=== PATIENT | female | born 1955 | race Two or more races ===

== ENCOUNTER 2017-04-17 04:55 | Emergency (ER) | payer MEDICAID ==
[~2017-04-17] VITALS: Ht 154.9 cm; Wt 59.0 kg
[2017-04-17 05:57] LABS: Basophils # (auto) 0.1 uL; Basophils % (auto) 0.5 % (0.0-2.0); Eosinophils # (auto) 0.3 uL; Eosinophils % (auto) 2.8 % (0.0-7.0); Hematocrit 33.9 % (36.0-46.0); Hemoglobin 11.3 g/dL (12.2-16.2); Lymphocytes # (auto) 2.3 uL; Lymphocytes % (auto) 22.9 % (10.0-50.0); Mean Corpuscular Hemoglobin 31.3 pg (28.0-32.0); Mean Corpuscular Hgb Conc. 33.3 g/dL (32.0-36.0); Mean Corpuscular Volume 93.9 fL (80.0-100.0); Mean Platelet Volume 8.7 fL (6.9-10.8); Monocytes # (auto) 0.9 uL; Monocytes % (auto) 8.9 % (0.0-12.0); Neutrophils # (auto) 6.5 uL; Neutrophils % (auto) 64.9 % (37.0-80.0); Platelet Count (auto) 219 10^3/uL (140-450); Red Cell Distribution Width 15.1 % (11.8-14.3)
[2017-04-17] MEDS ORDERED: ONDANSETRON HCL 4 MG/2 ML VIAL IV ONE (06:00)
[2017-04-17] MEDS ORDERED: MORPHINE SULF INJ 2 MG/ML SYRINGE 1ML IV ONE (06:00)
[2017-04-17 06:04] LABS: Urine Bilirubin Negative (Negative); Urine Blood 1+ /uL (Negative); Urine Color Yellow (Yellow); Urine Glucose 2+ mg/dL (Normal); Urine Ketone Negative (Negative); Urine Nitrite Negative (Negative); Urine RBC 3 /hpf (0 - 4); Urine Squamous Epithelial Cell FEW /hpf (<5); Urine Urobilinogen Normal (Negative)
[2017-04-17 06:10] LABS: INR 0.94 (0.9-1.15); Partial Thromboplastin Time 30.1 sec (22.64-33.71); Prothrombin Time 10.2 sec (9.37-12.3)
[2017-04-17 06:20] LABS: Albumin 3.1 g/dL (3.4-5.0); Amylase 119 U/L (25-115); Anion Gap 12 (5-15); Aspartate Aminotransferase 33 U/L (15-37); BUN/Creatinine Ratio 8.5; Blood Urea Nitrogen 53 mg/dL (7-18); Calcium 8.7 mg/dL (8.5-10.1); Carbon Dioxide 21 mmol/L (21-32); Chloride 107 mmol/L (98-107); GFR African American 9 mL/min; GFR Non-African American 7 mL/min; Glucose 144 mg/dL (74-106); Magnesium 2.6 mg/dL (1.6-2.6); Potassium 5.4 mmol/L (3.5-5.1); Sodium 140 mmol/L (136-145)
[2017-04-17 06:25] LABS: Alkaline Phosphatase 168 U/L (45-117); Bilirubin, Total 0.3 mg/dL (0.2-1.0); Total Protein 7.7 g/dL (6.4-8.2)
[2017-04-17] MEDS ORDERED: METOPROLOL TARTRATE 25 MG TAB PO ONE (07:00)
[2017-04-17] MEDS ORDERED: cloNIDine HCL 0.1 MG TAB PO ONE (07:00)
[2017-04-17 07:28] VITALS: BP 194/90
[2017-04-17] MEDS ORDERED: LABETALOL HCL 5 MG/ML 4ML SYRINGE IV ONE (07:30)
== END 2017-04-17 10:10 | disposition home or self-care (01) ==
LOC: ER 04:57
DX: I12.0 Hypertensive chronic kidney disease with stage 5 chronic kidney disease or end stage renal disease (principal); E11.22 Type 2 diabetes mellitus with diabetic chronic kidney disease; N18.6 End stage renal disease; Z88.2 Allergy status to sulfonamides; Z88.8 Allergy status to other drugs, medicaments and biological substances
CPT/HCPCS: 36415; 71010; 74176; 80053; 81001; 82150; 83690; 83735; 84484; 85025; 85610; 85730; 93005; 96374; 96375; 99285; J2270; J2405; J3490

== ENCOUNTER 2017-04-26 13:46 | Observation (INO) | payer MEDICAID ==
[~2017-04-26] VITALS: Ht 162.6 cm; Wt 54.4 kg
[2017-04-26 14:20] LABS: Basophils # (auto) 0 uL; Basophils % (auto) 0.4 % (0.0-2.0); Eosinophils # (auto) 0 uL; Eosinophils % (auto) 0.4 % (0.0-7.0); Hemoglobin 11.9 g/dL (12.2-16.2); Lymphocytes # (auto) 1.2 uL; Lymphocytes % (auto) 20.3 % (10.0-50.0); Mean Corpuscular Hemoglobin 31.7 pg (28.0-32.0); Mean Corpuscular Hgb Conc. 34.1 g/dL (32.0-36.0); Mean Corpuscular Volume 92.9 fL (80.0-100.0); Mean Platelet Volume 8.4 fL (6.9-10.8); Monocytes # (auto) 0.4 uL; Monocytes % (auto) 7.6 % (0.0-12.0); Neutrophils # (auto) 4.1 uL; Neutrophils % (auto) 71.3 % (37.0-80.0); Platelet Count (auto) 185 10^3/uL (140-450); Red Cell Distribution Width 15.2 % (11.8-14.3); White Blood Cell 5.7 10^3/uL (4.4-10.8)
[2017-04-26 14:38] LABS: Albumin 3.1 g/dL (3.4-5.0); Anion Gap 12 (5-15); Calcium 8.5 mg/dL (8.5-10.1); Carbon Dioxide 24 mmol/L (21-32); Chloride 100 mmol/L (98-107); Glucose 175 mg/dL (74-106); Magnesium 2.5 mg/dL (1.6-2.6); Potassium 4.4 mmol/L (3.5-5.1); Sodium 136 mmol/L (136-145)
[2017-04-26 14:44] LABS: Alkaline Phosphatase 139 U/L (45-117); Aspartate Aminotransferase 22 U/L (15-37); Bilirubin, Total 0.3 mg/dL (0.2-1.0); Blood Urea Nitrogen 45 mg/dL (7-18); GFR African American 9 mL/min; GFR Non-African American 7 mL/min; Total Protein 7.1 g/dL (6.4-8.2)
[2017-04-26] MEDS ORDERED: ONDANSETRON HCL 4 MG/2 ML VIAL IV ONE ×2 (16:30→18:45)
[2017-04-26] MEDS ORDERED: cloNIDine HCL 0.1 MG TAB PO ONE (17:30)
[2017-04-26 18:16] LABS: INR 0.94 (0.9-1.15); Partial Thromboplastin Time 33.4 sec (22.64-33.71); Prothrombin Time 10.2 sec (9.37-12.3)
[2017-04-26] MEDS ORDERED: MORPHINE SULF INJ 2 MG/ML SYRINGE 1ML IV ONE (18:45)
[2017-04-26] MEDS ORDERED: hydrALAZINE HCL 20 MG/ML VL IV ONE (19:15)
[2017-04-26] MEDS ORDERED: SODIUM CHLORIDE 0.9% 250 ML IV ONE (20:30)
[2017-04-26 20:34] VITALS: BP 127/68
== END 2017-04-26 21:08 | disposition short-term general hospital (02) | DRG 204 ==
LOC: EDBD 13:46 → ER 13:46 → OVERFLOW 16:29 → ER 21:08
PROVIDERS: ADMIT Family Medicine; ATTEND Family Medicine
DX: R55 Syncope and collapse (principal); E11.22 Type 2 diabetes mellitus with diabetic chronic kidney disease; I12.0 Hypertensive chronic kidney disease with stage 5 chronic kidney disease or end stage renal disease; N18.6 End stage renal disease; Z99.2 Dependence on renal dialysis; B02.9 Zoster without complications
CPT/HCPCS: 36415; 70450; 71010; 80053; 82962; 83605; 83735; 84484; 85025; 85610; 85730; 87040; 93005; 96374; 96375; 96376; 99285; G0378; J0360; J2270; J2405

== ENCOUNTER 2017-05-09 23:26 | Emergency (ER) | payer MEDICAID ==
[~2017-05-09] VITALS: Ht 154.9 cm; Wt 49.9 kg
[2017-05-10 00:28] LABS: Basophils # (auto) 0 uL; Basophils % (auto) 0.5 % (0.0-2.0); Eosinophils # (auto) 0 uL; Eosinophils % (auto) 0.4 % (0.0-7.0); Hematocrit 31.1 % (36.0-46.0); Hemoglobin 10.6 g/dL (12.2-16.2); Lymphocytes # (auto) 1.2 uL; Lymphocytes % (auto) 20.8 % (10.0-50.0); Mean Corpuscular Hemoglobin 31.5 pg (28.0-32.0); Mean Corpuscular Hgb Conc. 34.1 g/dL (32.0-36.0); Mean Corpuscular Volume 92.5 fL (80.0-100.0); Mean Platelet Volume 8.3 fL (6.9-10.8); Monocytes # (auto) 0.5 uL; Monocytes % (auto) 8.4 % (0.0-12.0); Neutrophils # (auto) 3.9 uL; Neutrophils % (auto) 69.9 % (37.0-80.0); Nucleated Red Blood Cells % 0.1 %; Platelet Count (auto) 172 10^3/uL (140-450); Red Cell Distribution Width 16.5 % (11.8-14.3); White Blood Cell 5.6 10^3/uL (4.4-10.8)
[2017-05-10 00:33] LABS: Albumin 2.7 g/dL (3.4-5.0); Calcium 7.7 mg/dL (8.5-10.1); Potassium 3.9 mmol/L (3.5-5.1)
[2017-05-10 00:38] LABS: Bilirubin, Total 0.5 mg/dL (0.2-1.0); Total Protein 6.3 g/dL (6.4-8.2)
[2017-05-10 00:40] LABS: B-Type Natriuretic Peptide 297.8 pg/mL (0-100)
[2017-05-10 00:48] LABS: INR 0.94 (0.9-1.15); Partial Thromboplastin Time 30.2 sec (22.64-33.71); Prothrombin Time 10.2 sec (9.37-12.3)
[2017-05-10 00:49] LABS: Temperature: 23.1 C (20.0-25.0)
[2017-05-10] MEDS ORDERED: MORPHINE SULF INJ 2 MG/ML SYRINGE 1ML IV ONE (01:00)
[2017-05-10] MEDS ORDERED: ONDANSETRON HCL 4 MG/2 ML VIAL IV ONE (01:00)
[2017-05-10 02:45] VITALS: BP 197/89
== END 2017-05-10 02:51 | disposition home or self-care (01) ==
LOC: ER 23:28
DX: I12.0 Hypertensive chronic kidney disease with stage 5 chronic kidney disease or end stage renal disease (principal); E11.22 Type 2 diabetes mellitus with diabetic chronic kidney disease; N18.6 End stage renal disease; Z99.2 Dependence on renal dialysis; Z88.2 Allergy status to sulfonamides; Z88.1 Allergy status to other antibiotic agents; Z88.8 Allergy status to other drugs, medicaments and biological substances
CPT/HCPCS: 36415; 70450; 71010; 80053; 83880; 84484; 85025; 85610; 85730; 96374; 96375; 99285; J2270; J2405

== ENCOUNTER 2017-09-15 17:35 | Inpatient (IN) | payer MEDICAID ==
[~2017-09-15] VITALS: Ht 154.9 cm; Wt 63.3 kg
[2017-09-15] MEDS ORDERED: ACETAMINOPHEN 500 MG TAB PO ONE ×2 (17:51→18:00)
[2017-09-15 18:25] LABS: Basophils # (auto) 0 uL; Basophils % (auto) 0.5 % (0.0-2.0); Eosinophils # (auto) 0 uL; Eosinophils % (auto) 0.3 % (0.0-7.0); Hematocrit 31.4 % (36.0-46.0); Hemoglobin 10.4 g/dL (12.2-16.2); Lymphocytes # (auto) 0.6 uL; Lymphocytes % (auto) 6.7 % (10.0-50.0); Mean Corpuscular Hemoglobin 31.1 pg (28.0-32.0); Mean Corpuscular Hgb Conc. 33.1 g/dL (32.0-36.0); Monocytes # (auto) 0.6 uL; Monocytes % (auto) 6.3 % (0.0-12.0); Neutrophils # (auto) 7.9 uL; Neutrophils % (auto) 86.2 % (37.0-80.0); Nucleated Red Blood Cells % 0.1 %; Platelet Count (auto) 229 10^3/uL (140-450); Red Blood Cells 3.34 10^6/uL (4.0-5.20); Red Cell Distribution Width 16.5 % (11.8-14.3); White Blood Cell 9.1 10^3/uL (4.4-10.8)
[2017-09-15] MEDS ORDERED: LEVOFLOXACIN 500MG 100 ML IV ONE (18:30)
[2017-09-15] MEDS ORDERED: IPRATROPIUM BROM 0.5 MG/2.5ML INH SOL HHN ONE (18:30)
[2017-09-15] MEDS ORDERED: methylPREDNISolone SOD SUCC 125 MG/2 ML VL IV ONE (18:30)
[2017-09-15] MEDS ORDERED: ALBUTEROL SULF 2.5 MG/0.5ML(0.5%) NEB SOLN HHN ONE (18:30)
[2017-09-15 18:37] LABS: INR 0.95 (0.9-1.15); Partial Thromboplastin Time 27.5 sec (22.64-33.71); Prothrombin Time 10.4 sec (9.37-12.3)
[2017-09-15 18:46] LABS: Albumin 3.2 g/dL (3.4-5.0); BUN/Creatinine Ratio 5.8; Bilirubin, Total 0.9 mg/dL (0.2-1.0); Calcium 8.4 mg/dL (8.5-10.1); Magnesium 2.4 mg/dL (1.6-2.6); Potassium 3.9 mmol/L (3.5-5.1); Total Protein 7.6 g/dL (6.4-8.2)
[2017-09-15] MEDS ORDERED: MORPHINE SULFATE 4 MG/ML SYR/VIAL IV PRN ×2 (19:30)
[2017-09-15] MEDS ORDERED: NITROGLYCERIN 0.4 MG SL TAB SL PRN (19:30)
[2017-09-15] MEDS ORDERED: HYDROcodone-ACET 5/325MG TAB PO PRN (19:30)
[2017-09-15] MEDS ORDERED: LORazepam 0.5 MG TAB PO PRN (19:30)
[2017-09-15] MEDS ORDERED: TEMAZEPAM 15 MG CAP PO PRN (19:30)
[2017-09-15] MEDS ORDERED: ALBUTEROL SULF 2.5 MG/0.5ML(0.5%) NEB SOLN NEB PRN (19:30)
[2017-09-15] MEDS ORDERED: ACETAMINOPHEN 500 MG TAB PO PRN (19:30)
[2017-09-15] MEDS ORDERED: LACTULOSE 20Gm/30ML SOLN PO PRN (19:30)
[2017-09-15] MEDS ORDERED: PIPERACILLIN-TAZOB 2.25GM 50 ML IV ONE (19:30)
[2017-09-15] MEDS ORDERED: DEXTROSE (50%) 50ML SYRG IV PRN (19:30)
[2017-09-15] MEDS ORDERED: VANCOMYCIN PER PHARMACY 0 MG IV SCH (19:30)
[2017-09-15 19:45] VITALS: BP 190/82
[2017-09-15] MEDS ORDERED: CARVEDILOL 12.5 MG TAB PO ONE (19:45)
[2017-09-15] MEDS ORDERED: VANCOMYCIN 1GM/250ML 250 ML IV ONE (20:00)
[2017-09-15] MEDS ORDERED: AZITHROMYCIN 500MG/ 250ML 250 ML IV ONE (21:15)
[2017-09-15] MEDS: ACCU-CHEK COMFORT CURVE STRIP VI SCH (21:41)
[2017-09-15] MEDS: InsuLIN REG 1unit/0.01ml Soln (100units/ml) SC SCH (21:41)
[2017-09-15] MEDS: SODIUM CHLOR 0.9% PF (SALINE LOCK) 10ML VIAL IV SCH (21:49)
[2017-09-15] MEDS ORDERED: SODIUM CHLOR 0.9% PF (SALINE LOCK) 10ML VIAL IV SCH (22:00)
[2017-09-15] MEDS ORDERED: CARVEDILOL 3.125 MG TAB PO SCH (22:00)
[2017-09-15] MEDS: OSELTAMIVIR 30 MG CAP PO SCH (22:29)
[2017-09-15] MEDS: PROMETHAZINE HCL 25 MG/ML 1ML IV PRN (23:22)
[2017-09-16] MEDS: IPRATROPIUM BROM 0.5 MG/2.5ML INH SOL NEB SCH ×4 (00:31→19:30)
[2017-09-16] MEDS: ALBUTEROL SULF 2.5 MG/0.5ML(0.5%) NEB SOLN NEB SCH ×4 (00:31→19:30)
[2017-09-16] MEDS ORDERED: LORazepam 2MG/ML-1ML VIAL IV ONE (02:45)
[2017-09-16] MEDS: SODIUM CHLOR 0.9% PF (SALINE LOCK) 10ML VIAL IV SCH ×3 (05:36→21:24)
[2017-09-16] MEDS: ACCU-CHEK COMFORT CURVE STRIP VI SCH ×4 (06:34→21:53)
[2017-09-16] MEDS: InsuLIN REG 1unit/0.01ml Soln (100units/ml) SC SCH ×4 (06:34→21:53)
[2017-09-16 07:11] LABS: Basophils # (auto) 0 uL; Eosinophils # (auto) 0 uL; Hematocrit 26.1 % (36.0-46.0); Hemoglobin 8.8 g/dL (12.2-16.2); Lymphocytes # (auto) 0.6 uL; Mean Corpuscular Hemoglobin 32.3 pg (28.0-32.0); Mean Corpuscular Hgb Conc. 33.9 g/dL (32.0-36.0); Mean Corpuscular Volume 95.1 fL (80.0-100.0); Monocytes # (auto) 0.1 uL; Monocytes % (auto) 2.4 % (0.0-12.0); Neutrophils # (auto) 5.2 uL; Neutrophils % (auto) 87.6 % (37.0-80.0); Nucleated Red Blood Cells % 0.1 %; Platelet Count (auto) 154 10^3/uL (140-450); Red Blood Cells 2.74 10^6/uL (4.0-5.20); Red Cell Distribution Width 15.7 % (11.8-14.3)
[2017-09-16 07:56] LABS: Albumin 2.8 g/dL (3.4-5.0); BUN/Creatinine Ratio 8.5; Bilirubin, Total 0.6 mg/dL (0.2-1.0); Calcium 7.6 mg/dL (8.5-10.1); Potassium 3.7 mmol/L (3.5-5.1); Total Protein 6.5 g/dL (6.4-8.2)
[2017-09-16] MEDS: OSELTAMIVIR 30 MG CAP PO SCH (10:00)
[2017-09-16] MEDS: FUROSEMIDE 40 MG/4 ML VIAL IV SCH (10:59)
[2017-09-16] MEDS: ASPirin 81 mg TAB PO SCH (10:59)
[2017-09-16] MEDS: AZITHROMYCIN 500MG/ 250ML 250 ML IV SCH (10:59)
[2017-09-16] MEDS: ENALAPRIL MALEATE 10 MG TAB PO SCH (11:00)
[2017-09-16] MEDS: PANTOPRAZOLE 40 MG TAB PO SCH (11:00)
[2017-09-16] MEDS: CARVEDILOL 12.5 MG TAB PO SCH ×2 (11:00→21:53)
[2017-09-16] MEDS: NITROGLYCERIN 0.2MG/HR TOPICAL PATCH TD SCH (11:01)
[2017-09-16] MEDS: ENOXAPARIN SOD 30 MG/0.3 ML SYRINGE SC SCH (11:03)
[2017-09-16] MEDS ORDERED: INS7030I SC ×2 (12:39)
[2017-09-16] MEDS ORDERED: HYDR25TA35 PO (12:39)
[2017-09-16] MEDS ORDERED: AMLO5TAB2 PO (12:39)
[2017-09-16] MEDS ORDERED: CALC667C5 PO (12:39)
[2017-09-16] MEDS ORDERED: METO25TA5 PO (12:39)
[2017-09-16] MEDS ORDERED: diphenhdrAMINE HCL 50 MG/1 ML VL IV ONE (14:15)
[2017-09-16 16:51] VITALS: BP 151/69
[2017-09-16] MEDS: PIPERACILLIN-TAZOB 2.25GM 50 ML IV SCH (21:24)
[2017-09-16 22:30] VITALS: BP 154/85
[2017-09-17] MEDS: ALBUTEROL SULF 2.5 MG/0.5ML(0.5%) NEB SOLN NEB SCH ×4 (00:36→18:47)
[2017-09-17] MEDS: IPRATROPIUM BROM 0.5 MG/2.5ML INH SOL NEB SCH ×4 (00:36→18:47)
[2017-09-17 05:25] VITALS: BP 148/73
[2017-09-17] MEDS: InsuLIN REG 1unit/0.01ml Soln (100units/ml) SC SCH ×4 (06:30→21:33)
[2017-09-17] MEDS: SODIUM CHLOR 0.9% PF (SALINE LOCK) 10ML VIAL IV SCH ×3 (06:30→22:08)
[2017-09-17] MEDS: ACCU-CHEK COMFORT CURVE STRIP VI SCH ×4 (06:30→22:09)
[2017-09-17 06:59] LABS: Basophils # (auto) 0 uL; Basophils % (auto) 0.2 % (0.0-2.0); Eosinophils # (auto) 0 uL; Hematocrit 24.4 % (36.0-46.0); Hemoglobin 8.3 g/dL (12.2-16.2); Lymphocytes # (auto) 1.4 uL; Lymphocytes % (auto) 12.6 % (10.0-50.0); Mean Corpuscular Hemoglobin 31.6 pg (28.0-32.0); Mean Corpuscular Hgb Conc. 33.9 g/dL (32.0-36.0); Mean Corpuscular Volume 93.5 fL (80.0-100.0); Monocytes # (auto) 0.5 uL; Monocytes % (auto) 4.7 % (0.0-12.0); Neutrophils # (auto) 9.2 uL; Neutrophils % (auto) 82.5 % (37.0-80.0); Platelet Count (auto) 167 10^3/uL (140-450); Red Blood Cells 2.61 10^6/uL (4.0-5.20); Red Cell Distribution Width 15.8 % (11.8-14.3); White Blood Cell 11.1 10^3/uL (4.4-10.8)
[2017-09-17 07:23] LABS: Albumin 2.5 g/dL (3.4-5.0); BUN/Creatinine Ratio 10.4; Bilirubin, Total 0.4 mg/dL (0.2-1.0); Calcium 6.8 mg/dL (8.5-10.1); Potassium 4.2 mmol/L (3.5-5.1); Total Protein 5.9 g/dL (6.4-8.2)
[2017-09-17 08:00] VITALS: BP 153/82
[2017-09-17] MEDS ORDERED: diphenhdrAMINE HCL 50 MG/1 ML VL IV ONE (08:00)
[2017-09-17 08:39] LABS: Basophils # (auto) 0 uL; Basophils % (auto) 0.2 % (0.0-2.0); Eosinophils # (auto) 0 uL; Hematocrit 26.5 % (36.0-46.0); Hemoglobin 8.9 g/dL (12.2-16.2); Lymphocytes # (auto) 1.4 uL; Lymphocytes % (auto) 12.8 % (10.0-50.0); Mean Corpuscular Hemoglobin 31.8 pg (28.0-32.0); Mean Corpuscular Hgb Conc. 33.7 g/dL (32.0-36.0); Mean Corpuscular Volume 94.5 fL (80.0-100.0); Monocytes # (auto) 0.5 uL; Monocytes % (auto) 4.2 % (0.0-12.0); Neutrophils # (auto) 9.1 uL; Neutrophils % (auto) 82.8 % (37.0-80.0); Platelet Count (auto) 174 10^3/uL (140-450); Red Blood Cells 2.81 10^6/uL (4.0-5.20); Red Cell Distribution Width 15.8 % (11.8-14.3)
[2017-09-17 09:00] VITALS: BP 153/82
[2017-09-17 09:06] LABS: BUN/Creatinine Ratio 10.2
[2017-09-17] MEDS: AZITHROMYCIN 500MG/ 250ML 250 ML IV SCH (09:57)
[2017-09-17] MEDS: PIPERACILLIN-TAZOB 2.25GM 50 ML IV SCH ×2 (09:57→21:33)
[2017-09-17] MEDS: FUROSEMIDE 40 MG/4 ML VIAL IV SCH (10:00)
[2017-09-17] MEDS: OSELTAMIVIR 30 MG CAP PO SCH (10:00)
[2017-09-17] MEDS: ENOXAPARIN SOD 30 MG/0.3 ML SYRINGE SC SCH (10:01)
[2017-09-17] MEDS: ENALAPRIL MALEATE 10 MG TAB PO SCH (10:01)
[2017-09-17] MEDS: ASPirin 81 mg TAB PO SCH (10:02)
[2017-09-17] MEDS: CARVEDILOL 12.5 MG TAB PO SCH ×2 (10:02→22:08)
[2017-09-17] MEDS: PANTOPRAZOLE 40 MG TAB PO SCH (10:02)
[2017-09-17] MEDS: NITROGLYCERIN 0.2MG/HR TOPICAL PATCH TD SCH (10:03)
[2017-09-17] MEDS: LABETALOL HCL 5 MG/ML ML 20ML VIAL IV PRN (11:10)
[2017-09-17 13:00] VITALS: BP 148/68
[2017-09-17 17:00] VITALS: BP 164/81
[2017-09-17] MEDS ORDERED: PROMETHAZINE W/CODEINE 5 ML ORAL SYRUP PO PRN (18:30)
[2017-09-17] MEDS ORDERED: BUMETANIDE (0.25 MG/ML) INJ 10ML IV ONE (18:30)
[2017-09-17 22:00] VITALS: BP 165/80
[2017-09-18] MEDS: ALBUTEROL SULF 2.5 MG/0.5ML(0.5%) NEB SOLN NEB SCH ×4 (00:34→20:00)
[2017-09-18] MEDS: IPRATROPIUM BROM 0.5 MG/2.5ML INH SOL NEB SCH ×4 (00:34→20:00)
[2017-09-18] MEDS: LABETALOL HCL 5 MG/ML ML 20ML VIAL IV PRN ×3 (00:56→22:12)
[2017-09-18 06:00] VITALS: BP 156/85
[2017-09-18] MEDS: BUMETANIDE (0.25MG/ML) 4 ML VIAL IV SCH ×3 (06:00→18:00)
[2017-09-18] MEDS: SODIUM CHLOR 0.9% PF (SALINE LOCK) 10ML VIAL IV SCH ×3 (06:43→22:03)
[2017-09-18] MEDS: InsuLIN REG 1unit/0.01ml Soln (100units/ml) SC SCH ×4 (06:44→22:03)
[2017-09-18] MEDS: ACCU-CHEK COMFORT CURVE STRIP VI SCH ×4 (06:44→22:03)
[2017-09-18 07:57] LABS: INR 0.97 (0.9-1.15); Prothrombin Time 10.6 sec (9.37-12.3)
[2017-09-18] MEDS ORDERED: SODIUM CHL 0.9% 1000 ML BAG XX ONE (08:00)
[2017-09-18] MEDS ORDERED: EPOETIN ALFA 10,000 UNIT/1 ML VIAL IV ONE (08:00)
[2017-09-18 08:02] LABS: Potassium 4.2 mmol/L (3.5-5.1)
[2017-09-18 08:13] LABS: BUN/Creatinine Ratio 9.8; Calcium 6.4 mg/dL (8.5-10.1)
[2017-09-18] MEDS ORDERED: IOHEXOL 350 MG/ML 100ML IJ ONE ×2 (08:54→10:22)
[2017-09-18] MEDS ORDERED: LIDOCAINE 2%HCL (LOCAL ANESTH.) INJ 20ML MDV ONE (08:54)
[2017-09-18] MEDS: PIPERACILLIN-TAZOB 2.25GM 50 ML IV SCH ×2 (09:00→22:03)
[2017-09-18 09:25] VITALS: BP 173/72
[2017-09-18] MEDS: NITROGLYCERIN 0.2MG/HR TOPICAL PATCH TD SCH (09:42)
[2017-09-18] MEDS: AZITHROMYCIN 500MG/ 250ML 250 ML IV SCH (09:42)
[2017-09-18] MEDS: CARVEDILOL 12.5 MG TAB PO SCH ×2 (09:43→22:11)
[2017-09-18] MEDS: ASPirin 81 mg TAB PO SCH (09:43)
[2017-09-18] MEDS: ENOXAPARIN SOD 30 MG/0.3 ML SYRINGE SC SCH (09:43)
[2017-09-18] MEDS: PANTOPRAZOLE 40 MG TAB PO SCH (09:43)
[2017-09-18] MEDS: ENALAPRIL MALEATE 10 MG TAB PO SCH (09:43)
[2017-09-18] MEDS ORDERED: ANGIOMAX 250 MG VIAL IV ONE (10:01)
[2017-09-18] MEDS ORDERED: SODIUM CHL 0.9% 50 ML ONE (10:01)
[2017-09-18] MEDS ORDERED: fentaNYL CITRATE 100 MCG/2 ML VL ONE (10:01)
[2017-09-18] MEDS ORDERED: MIDAZOLAM HCL 1MG/1ML-2 ML VIAL ONE (10:01)
[2017-09-18] MEDS ORDERED: METOPROLOL TARTRATE 1MG/1ML-5ML VIAL IV ONE (10:39)
[2017-09-18] MEDS ORDERED: CLOPIDOGREL 300 MG TAB ONE (10:41)
[2017-09-18 13:03] VITALS: BP 184/79
[2017-09-18 17:57] VITALS: BP 179/85
[2017-09-18] MEDS: guaiFENesin-DM 100/10mg/5ml SYR PO SCH (18:05)
[2017-09-18 22:00] VITALS: BP 169/53
[2017-09-19] MEDS ORDERED: hydrALAZINE HCL 20 MG/ML VL IV ONE (00:15)
[2017-09-19] MEDS: ALBUTEROL SULF 2.5 MG/0.5ML(0.5%) NEB SOLN NEB SCH ×3 (00:32→12:47)
[2017-09-19] MEDS: IPRATROPIUM BROM 0.5 MG/2.5ML INH SOL NEB SCH ×3 (00:32→12:47)
[2017-09-19] MEDS: guaiFENesin-DM 100/10mg/5ml SYR PO SCH ×3 (01:04→12:06)
[2017-09-19] MEDS: PROMETHAZINE HCL 25 MG/ML 1ML IV PRN (01:47)
[2017-09-19 05:00] VITALS: BP 147/69
[2017-09-19 05:44] LABS: Basophils # (auto) 0 uL; Basophils % (auto) 0.2 % (0.0-2.0); Eosinophils # (auto) 0 uL; Eosinophils % (auto) 0.2 % (0.0-7.0); Hematocrit 25.7 % (36.0-46.0); Hemoglobin 8.7 g/dL (12.2-16.2); Lymphocytes # (auto) 0.5 uL; Lymphocytes % (auto) 11.5 % (10.0-50.0); Mean Corpuscular Hemoglobin 31.8 pg (28.0-32.0); Mean Corpuscular Hgb Conc. 33.7 g/dL (32.0-36.0); Mean Corpuscular Volume 94.3 fL (80.0-100.0); Monocytes # (auto) 0.5 uL; Monocytes % (auto) 12.3 % (0.0-12.0); Neutrophils # (auto) 3.2 uL; Neutrophils % (auto) 75.8 % (37.0-80.0); Platelet Count (auto) 142 10^3/uL (140-450); Red Blood Cells 2.72 10^6/uL (4.0-5.20); Red Cell Distribution Width 15.7 % (11.8-14.3); White Blood Cell 4.2 10^3/uL (4.4-10.8)
[2017-09-19] MEDS: SODIUM CHLOR 0.9% PF (SALINE LOCK) 10ML VIAL IV SCH ×2 (06:50→13:20)
[2017-09-19] MEDS: InsuLIN REG 1unit/0.01ml Soln (100units/ml) SC SCH ×2 (06:50→11:30)
[2017-09-19] MEDS: ACCU-CHEK COMFORT CURVE STRIP VI SCH ×2 (06:51→11:30)
[2017-09-19] MEDS ORDERED: BUMETANIDE (0.25 MG/ML) INJ 10ML IV SCH (07:15)
[2017-09-19 08:28] VITALS: BP 154/73
[2017-09-19] MEDS ORDERED: CLOPIDOGREL BISULFATE 75 MG TAB PO SCH (10:00)
[2017-09-19] MEDS: PIPERACILLIN-TAZOB 2.25GM 50 ML IV SCH (10:20)
[2017-09-19] MEDS: PANTOPRAZOLE 40 MG TAB PO SCH (10:20)
[2017-09-19] MEDS: ENOXAPARIN SOD 30 MG/0.3 ML SYRINGE SC SCH (10:21)
[2017-09-19] MEDS: NITROGLYCERIN 0.2MG/HR TOPICAL PATCH TD SCH (10:21)
[2017-09-19] MEDS: ENALAPRIL MALEATE 10 MG TAB PO SCH (10:22)
[2017-09-19] MEDS: ASPirin 81 mg TAB PO SCH (10:23)
[2017-09-19] MEDS: CARVEDILOL 12.5 MG TAB PO SCH (10:23)
[2017-09-19] MEDS: AZITHROMYCIN 500MG/ 250ML 250 ML IV SCH (10:26)
[2017-09-19 12:30] VITALS: BP 144/91
[2017-09-19 13:22] VITALS: BP 151/70
[2017-09-19] MEDS ORDERED: TPN PER PHARMACY IV NR ×8 (20:00)
== END 2017-09-19 14:41 | disposition home or self-care (01) | DRG 174 ==
LOC: ER 17:45 → TELE 17:46 → TELE-WESTW 09-16 11:26
PROVIDERS: ADMIT Internal Medicine; ATTEND Family Medicine
PROC: 027134Z Dilation of Coronary Artery, Two Arteries with Drug-eluting Intraluminal Device, Percutaneous Approach (ICD-10-PCS; principal; 2017-09-18)
PROC: 4A023N7 Measurement of Cardiac Sampling and Pressure, Left Heart, Percutaneous Approach (ICD-10-PCS; 2017-09-18)
PROC: B2111ZZ Fluoroscopy of Multiple Coronary Arteries using Low Osmolar Contrast (ICD-10-PCS; 2017-09-18)
PROC: B2151ZZ Fluoroscopy of Left Heart using Low Osmolar Contrast (ICD-10-PCS; 2017-09-18)
DX: I21.4 Non-ST elevation (NSTEMI) myocardial infarction (principal); J96.00 Acute respiratory failure, unspecified whether with hypoxia or hypercapnia; I13.2 Hypertensive heart and chronic kidney disease with heart failure and with stage 5 chronic kidney disease, or end stage renal disease; J18.9 Pneumonia, unspecified organism; N18.6 End stage renal disease; I50.9 Heart failure, unspecified; Z99.2 Dependence on renal dialysis
CPT/HCPCS: 36415; 36600; 71045; 80048; 80053; 80061; 80202; 82550; 82805; 82962; 83036; 83605; 83735; 83880; 84443; 84484; 85025; 85379; 85610; 85730; 86850; 86900; 86901; 87040; 87070; 87081; 87205; 87804; 90935; 93005; 93306; 93458; 94640; 94644; 96374; 96375; 99152; 99291; C1874; G9035; J0885; J1815; J1956; J2250; J2543

== ENCOUNTER 2017-12-22 16:56 | Emergency (ER) | payer MEDICAID ==
[~2017-12-22] VITALS: Ht 154.9 cm; Wt 57.3 kg
[~2017-12-22 16:56] MED LIST: AMLO5TAB2 PO; CALC667C5 PO; HYDR25TA35 PO; INS7030I SC; METO25TA5 PO
[2017-12-22] MEDS ORDERED: PANTOPRAZOLE 40 MG/10 ML VIAL IV STA (17:10)
[2017-12-22] MEDS ORDERED: SODIUM CHLORIDE 0.9% 500 ML IVB ONE (17:10)
[2017-12-22] MEDS ORDERED: MORPHINE SULFATE 8mg/ml INJ SDV IV ONE (17:15)
[2017-12-22] MEDS ORDERED: ONDANSETRON HCL 4 MG/2 ML VIAL IV ONE (17:15)
[2017-12-22 18:05] LABS: Urine Bacteria NONE SEEN /hpf (None Seen); Urine Blood Negative /uL (Negative); Urine Specific Gravity 1.015 (1.001-1.035); Urine WBC 4 /hpf (0 - 5)
[2017-12-22 18:08] LABS: Basophils # (auto) 0 uL; Basophils % (auto) 0.7 % (0.0-2.0); Eosinophils # (auto) 0.1 uL; Eosinophils % (auto) 2.2 % (0.0-7.0); Hematocrit 29.4 % (36.0-46.0); Hemoglobin 9.9 g/dL (12.2-16.2); Lymphocytes # (auto) 0.9 uL; Lymphocytes % (auto) 17.6 % (10.0-50.0); Mean Corpuscular Hgb Conc. 33.9 g/dL (32.0-36.0); Mean Corpuscular Volume 94.5 fL (80.0-100.0); Monocytes # (auto) 0.4 uL; Monocytes % (auto) 7.1 % (0.0-12.0); Neutrophils # (auto) 3.8 uL; Neutrophils % (auto) 72.4 % (37.0-80.0); Nucleated Red Blood Cells % 0.1 %; Platelet Count (auto) 232 10^3/uL (140-450); Red Blood Cells 3.11 10^6/uL (4.0-5.20); Red Cell Distribution Width 16.8 % (11.8-14.3); White Blood Cell 5.2 10^3/uL (4.4-10.8)
[2017-12-22 18:19] LABS: Anion Gap 11 (5-15); Blood Urea Nitrogen 9 mg/dL (7-18); Carbon Dioxide 32 mmol/L (21-32); Chloride 91 mmol/L (98-107); GFR African American 29 mL/min; Glucose 145 mg/dL (74-106); Potassium 3.4 mmol/L (3.5-5.1); Sodium 134 mmol/L (136-145)
[2017-12-22 18:20] LABS: Alanine Aminotransferase 30 U/L (13-56); Albumin 3.4 g/dL (3.4-5.0); Amylase 50 U/L (25-115); Aspartate Aminotransferase 35 U/L (15-37); Calcium 8.2 mg/dL (8.5-10.1); GFR Non-African American 24 mL/min; Lipase 216 U/L (73-393); Magnesium 1.9 mg/dL (1.6-2.6)
[2017-12-22 18:24] LABS: Alkaline Phosphatase 148 U/L (45-117); Bilirubin, Total 0.8 mg/dL (0.2-1.0)
[2017-12-22 21:40] VITALS: BP 161/74
== END 2017-12-22 21:54 | disposition short-term general hospital (02) ==
LOC: ER 17:00
DX: R11.2 Nausea with vomiting, unspecified (principal); D64.9 Anemia, unspecified; E11.22 Type 2 diabetes mellitus with diabetic chronic kidney disease; I12.0 Hypertensive chronic kidney disease with stage 5 chronic kidney disease or end stage renal disease; N18.6 End stage renal disease; E78.5 Hyperlipidemia, unspecified; I25.2 Old myocardial infarction; Z88.8 Allergy status to other drugs, medicaments and biological substances; Z99.2 Dependence on renal dialysis; Z88.2 Allergy status to sulfonamides; Z79.4 Long term (current) use of insulin
CPT/HCPCS: 36415; 71045; 76705; 80053; 81001; 82150; 83690; 83735; 84484; 85025; 93005; 94761; 96361; 96374; 96375; 99285; C9113; J2405

== ENCOUNTER 2020-09-28 23:49 | Emergency (ER) | payer MEDICARE, MEDICAID ==
[~2020-09-28] VITALS: Ht 154.9 cm; Wt 52.2 kg
[~2020-09-28 23:49] MED LIST changes: -AMLO5TAB2 PO; +ATOR20TA50 PO; -CALC667C5 PO; +CLON0.3T TD; +CLOP75TA70 PO; -HYDR25TA35 PO; +LABE200T6 GT; +LISI40TA11 PO; -METO25TA5 PO; +NIFE1TAB30 PO; +TERA5CAP42 PO
[2020-09-29] MEDS ORDERED: ACETAMINOPHEN 325 MG TAB PO ONE (00:15)
[2020-09-29 00:41] LABS: Basophils # (auto) 0 10 ^3/uL (0-0.2); Basophils % (auto) 0.3 % (0.0-2.0); Eosinophils # (auto) 0.1 10 ^3/uL (0-0.8); Eosinophils % (auto) 1.4 % (0.0-7.0); Hematocrit 31.2 % (36.0-46.0); Hemoglobin 10.6 g/dL (12.2-16.2); Lymphocytes # (auto) 0.8 10 ^3/uL (0.4-5.4); Lymphocytes % (auto) 8.3 % (10.0-50.0); Mean Corpuscular Hemoglobin 31.8 pg (28.0-32.0); Mean Corpuscular Volume 93.6 fL (80.0-100.0); Monocytes # (auto) 0.6 10 ^3/uL (0-1.3); Monocytes % (auto) 5.9 % (0.0-12.0); Neutrophils # (auto) 8.5 10 ^3/uL (1.6-8.6); Neutrophils % (auto) 84.1 % (37.0-80.0); Platelet Count (auto) 180 10^3/uL (140-450); Red Blood Cells 3.33 10^6/uL (4.0-5.20); Red Cell Distribution Width 16.4 % (11.8-14.3); White Blood Cell 10.1 10^3/uL (4.4-10.8)
[2020-09-29 00:54] LABS: Albumin 3.4 g/dL (3.4-5.0); Anion Gap 10 (5-15); Blood Urea Nitrogen 51 mg/dL (7-18); Calcium 8.4 mg/dL (8.5-10.1); Carbon Dioxide 29 mmol/L (21-32); Chloride 96 mmol/L (98-107); Glucose 146 mg/dL (74-106); Potassium 5.1 mmol/L (3.5-5.1); Sodium 135 mmol/L (136-145)
[2020-09-29 00:56] LABS: Alanine Aminotransferase 39 U/L (13-56); Aspartate Aminotransferase 26 U/L (15-37); BUN/Creatinine Ratio 7.5; GFR African American 8 mL/min; GFR Non-African American 6 mL/min
[2020-09-29 01:01] LABS: Alkaline Phosphatase 154 U/L (45-117); Bilirubin, Total 0.5 mg/dL (0.2-1.0); Total Protein 7.6 g/dL (6.4-8.2)
[2020-09-29 05:00] VITALS: BP 128/49
== END 2020-09-29 06:20 | disposition home or self-care (01) ==
LOC: ER 23:51
DX: R07.89 Other chest pain (principal); E11.22 Type 2 diabetes mellitus with diabetic chronic kidney disease; I12.0 Hypertensive chronic kidney disease with stage 5 chronic kidney disease or end stage renal disease; N18.6 End stage renal disease; I25.2 Old myocardial infarction; E78.5 Hyperlipidemia, unspecified; Z98.51 Tubal ligation status; Z79.899 Other long term (current) drug therapy; Z88.6 Allergy status to analgesic agent; Z88.2 Allergy status to sulfonamides
CPT/HCPCS: 36415; 71045; 80053; 83605; 83880; 84484; 85025; 93005

== ENCOUNTER 2020-11-07 19:16 | Emergency (ER) | payer MEDICARE, MEDICAID ==
[~2020-11-07] VITALS: Ht 154.9 cm; Wt 52.2 kg
[2020-11-07] MEDS ORDERED: MORPHINE SULF INJ 2 MG/ML SYRINGE 1ML IV ONE ×2 (21:15→21:30)
[2020-11-07] MEDS ORDERED: SODIUM CHLORIDE 0.9% 500 ML IV ONE (21:15)
[2020-11-07] MEDS ORDERED: ONDANSETRON HCL 4 MG/2 ML VIAL IV ONE (21:15)
[2020-11-07 21:16] LABS: Basophils # (auto) 0 10 ^3/uL (0-0.2); Basophils % (auto) 0.1 % (0.0-2.0); Eosinophils # (auto) 0 10 ^3/uL (0-0.8); Eosinophils % (auto) 0.1 % (0.0-7.0); Hematocrit 26.6 % (36.0-46.0); Hemoglobin 8.7 g/dL (12.2-16.2); Lymphocytes # (auto) 1.5 10 ^3/uL (0.4-5.4); Lymphocytes % (auto) 8.7 % (10.0-50.0); Mean Corpuscular Hemoglobin 33.1 pg (28.0-32.0); Mean Corpuscular Hgb Conc. 32.8 g/dL (32.0-36.0); Mean Corpuscular Volume 100.8 fL (80.0-100.0); Monocytes # (auto) 1.6 10 ^3/uL (0-1.3); Monocytes % (auto) 9.7 % (0.0-12.0); Neutrophils # (auto) 13.7 10 ^3/uL (1.6-8.6); Neutrophils % (auto) 81.4 % (37.0-80.0); Nucleated Red Blood Cells % 0.5 %; Platelet Count (auto) 124 10^3/uL (140-450); Red Blood Cells 2.64 10^6/uL (4.0-5.20); Red Cell Distribution Width 16.8 % (11.8-14.3); White Blood Cell 16.8 10^3/uL (4.4-10.8)
[2020-11-07 21:33] LABS: INR 1.66 (0.9-1.15); Partial Thromboplastin Time 30.6 sec (23.0-31.2)
[2020-11-07 21:35] LABS: Albumin 3.6 g/dL (3.4-5.0); Calcium 8.5 mg/dL (8.5-10.1); Potassium 5.5 mmol/L (3.5-5.1)
[2020-11-07 21:38] LABS: BUN/Creatinine Ratio 8.9; Bilirubin, Total 0.9 mg/dL (0.2-1.0); Total Protein 7.4 g/dL (6.4-8.2)
[2020-11-07 21:50] LABS: Lactic Acid w/Reflex 16.4 mmol/L (0.4-2.0)
[2020-11-07] MEDS ORDERED: HYDROmorphone HCL 2 MG/ML VL IV ONE (22:45)
[2020-11-07] MEDS ORDERED: VANCOMYCIN PER PHARMACY 0 MG IV SCH (22:45)
[2020-11-07] MEDS ORDERED: PIPERACILLIN-TAZOB 3.375GM 100 ML IV ONE (22:45)
[2020-11-07] MEDS ORDERED: VANCOMYCIN 1GM/250ML 250 ML IV ONE (23:00)
[2020-11-07 23:49] VITALS: BP 122/76
== END 2020-11-08 00:01 | disposition designated cancer center or children's hospital (05) ==
LOC: ER 19:17
DX: A41.9 Sepsis, unspecified organism (principal); K81.9 Cholecystitis, unspecified; E11.22 Type 2 diabetes mellitus with diabetic chronic kidney disease; I12.0 Hypertensive chronic kidney disease with stage 5 chronic kidney disease or end stage renal disease; N18.6 End stage renal disease; R74.8 Abnormal levels of other serum enzymes; K76.7 Hepatorenal syndrome; I25.2 Old myocardial infarction; E78.00 Pure hypercholesterolemia, unspecified; E66.9 Obesity, unspecified; R00.0 Tachycardia, unspecified; Z77.22 Contact with and (suspected) exposure to environmental tobacco smoke (acute) (chronic); Z88.6 Allergy status to analgesic agent; Z88.2 Allergy status to sulfonamides; Z88.8 Allergy status to other drugs, medicaments and biological substances; Z79.4 Long term (current) use of insulin; Z79.899 Other long term (current) drug therapy; Z98.51 Tubal ligation status; Z68.21 Body mass index [BMI] 21.0-21.9, adult; Z20.822 Contact with and (suspected) exposure to COVID-19
CPT/HCPCS: 36415; 71250; 74176; 76705; 80053; 80329; 82140; 82728; 83605; 83690; 83880; 85025; 85610; 85730; 87040; 87426; 93005; 96365; 96375; 96376; 99291; J1170; J2270; J2405; J3370